=== PATIENT | female | born 1950 | race African-American/Black ===

== ENCOUNTER 2023-04-15 07:30 | Day surgery (SDC) | payer OTHER ==
[2023-04-13 10:30] LABS: Absolute Lymphocytes (CBC) 2.1 K/uL (0.7-4.9); MPV 8.8 fL (7.6-11.3); Platelets 302 thou/uL (152-406); RBC Red Blood Cell Count 4.31 M/uL (3.86-4.86)
[2023-04-13 10:36] LABS: Protime INR 0.97
--- NOTE | 2023-04-13 10:39 | RAD REPORT ---
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 Lungs: No evidence of edema or pneumonia. Pleural: No significant pleural effusions or pneumothorax. Cardiac: The heart size is within normal limits. Mediastinum: Within normal limits. Bones: No acute fractures. Other: None IMPRESSION: No acute cardiopulmonary disease.
--- NOTE | 2023-04-14 18:07 | EKG ---
Test Date: 2023-04-13 Test Time: 10:17:19 Controller Repairer And Tester: LEON MEASUREMENT RESULTS: Intervals: Rate: 63 AK: 240 QRSD: 86 QT: 380 QTc: 388 [place]: P: -9 AK: 240 QRS: 57 T: -90 INTERPRETIVE STATEMENTS: Electronic atrial pacemaker Cannot rule out Anterior infarct, age undetermined ST & T wave abnormality, consider inferolateral ischemia Abnormal ECG Compared to ECG 05/11/2007 18:32:35 Myocardial infarct finding now present ST (T wave) deviation now present Possible ischemia now present Sinus rhythm no longer present Electronically Signed On 04-14-23 18:03:57 CDT by Augustus Love
[2023-04-15] MEDS ORDERED: NA CHLORIDE 0.9% 500 ML ONE (08:59)
[2023-04-15] MEDS ORDERED: LIDOCAINE 1% 20 ML MDV ONE (10:41)
[2023-04-15] MEDS ORDERED: MIDAZOLAM HCL 2 MG/2 ML INJ ONE (10:42)
[2023-04-15] MEDS ORDERED: FENTANYL CITR 100 MCG/2 ML ONE (10:42)
[2023-04-15] MEDS ORDERED: ATROPINE SULF 1 MG/10 ML SYR IV ONE (10:42)
[2023-04-15] MEDS ORDERED: HEPA 1000U/500MLS 2,000 UNIT/1,000 ML BAG IV ONE (10:42)
[2023-04-15 12:20] VITALS: O2SAT 99
[2023-04-15] MEDS ORDERED: HYDRALAZINE HCL 20 MG/ML VIAL ONE (12:43)
--- NOTE | 2023-04-15 13:05 | OP ---
Date of Procedure: 04/15/2023 Surgeon: MARCELA KLINE Procedure Performed: Selective bilateral carotid angiogram. Indication: Carotid stenosis by Doppler that appeared to be significant. Access: Right femoral artery, 6-Sammarinese, closed with 6-Sammarinese Angio-Seal. Complications: None. Bleeding: Less than 20 mL. Anesthesia: Total sedation time was 35 minutes. Description Of Procedure: After risks, benefits, and alternatives were explained, the patient agreed to the procedure and signed informed consent. The patient was brought into the cardiac catheterizat ion laboratory, prepped and draped in the usual sterile fashion. Then, I accessed right femoral katie ry using micropuncture kit, ultrasound guidance, fluoroscopy. I placed a 6-Sammarinese [place] sheath an d took 4-Sammarinese 3DRC catheter into the aortic arch, engaged the right common carotid, took standard v iews and then left common carotid, took standard views and removed the catheter and the sheath. 6-Fr ench Angio-Seal was used for closure. Good hemostasis. Findings: 1.Right common carotid is normal proximally and mid. The distal segment has 56% stenosis and the ri ght internal carotid artery has proximal 60% stenosis. 2.Left common carotid is normal and left internal carotid has proximal 70% stenosis. The left exter nal carotid is normal. Conclusion: 1.Severe left internal carotid artery stenosis. 2.Moderate to severe right internal carotid artery stenosis. Recommendation: Left endarterectomy and careful monitoring of the right side. SR/MODL Voice ID: [id number] Report ID: [id number]
[2023-04-15 13:58] VITALS: BP 139/50
== END 2023-04-15 13:15 | disposition home or self-care (01) ==
LOC: CCL 07:30
PROVIDERS: ATTEND Internal Medicine
DX: I65.23 Occlusion and stenosis of bilateral carotid arteries (principal); Z95.0 Presence of cardiac pacemaker
CPT/HCPCS: 93005; 85025; 80048; 36415; 83721; 85610; 82947; 85730; 71046; 36222; 76937; C1893; C1760; G0269; J0360; J2001; J2250; J3010; J7040; J0461

== ENCOUNTER 2024-04-04 11:16 | Day surgery (SDC) | payer OTHER ==
--- NOTE | 2024-04-03 13:23 | RAD REPORT ---
Procedure: Chest Pa And Lat (2 Views) HISTORY: Hypertension. Preop for cardiac catheterization COMPARISON: 2022 FINDINGS: The lungs appear clear of acute infiltrate. No significant pleural effusion noted. The heart is mildly to moderately enlarged. Pacemaker leads in place IMPRESSION: No acute abnormality is displayed.
[2024-04-03 13:47] LABS: Absolute Eosinophils 0.1 K/uL (0-0.5); Absolute Lymphocytes (CBC) 1.9 K/uL (0.7-4.9); Absolute Monocytes 0.5 K/uL (0.1-1.3); Absolute Neutrophil 5.6 K/uL (1.8-8.0); Basophils % 0.6 % (0-1.3); Eosinophils % 0.8 % (0-4.4); Hemoglobin 11.3 g/dL (12.0-15.0); MCH 28.3 pg (27.0-35.0); MCHC 32.3 g/dL (32.0-36.0); MCV 87.8 fL (80-100); MPV 9.9 fL (7.6-11.3); Monocytes % 5.8 % (3.3-12.3); Neutrophils % 68.8 % (41.7-73.7); Platelets 264 thou/uL (152-406); RBC Red Blood Cell Count 3.98 M/uL (3.86-4.86); Red Cell Distribution Width 15.5 % (12.1-15.2)
[2024-04-03 15:05] LABS: Anion Gap 11.9 mEq/L (5.0-15.0); Potassium 3.9 mEq/L (3.5-5.1)
[2024-04-04] MEDS ORDERED: NA CHLORIDE 0.9% 500 ML ONE (11:29)
[2024-04-04 12:14] LABS: PT Prothrombin Time 11.6 SECONDS (9.4-12.5); PTT, Activated Partial Thromb 30.6 SECONDS (24.3-36.9); Protime INR 1.04
[2024-04-04 12:15] VITALS: TEMP 97.5
[2024-04-04] MEDS ORDERED: ATROPINE SULF 1 MG/10 ML SYR IV ONE (12:37)
[2024-04-04] MEDS ORDERED: LIDOCAINE 1% 20 ML MDV ONE (12:37)
[2024-04-04] MEDS ORDERED: VERAPAMIL HCL 10 MG/4 ML VIAL IV ONE (12:37)
[2024-04-04] MEDS ORDERED: HEPARIN 10,000 UNIT/10 ML VIAL IV ONE (12:37)
[2024-04-04] MEDS ORDERED: TICAGRELOR 90 MG TABLET PO ONE (12:38)
[2024-04-04] MEDS ORDERED: CLOPIDOGREL 75 MG TABLET ONE (12:38)
[2024-04-04] MEDS ORDERED: HEPARIN 5000 UNIT/ML 1 ML VIAL ONE (12:38)
[2024-04-04] MEDS ORDERED: MIDAZOLAM HCL 2 MG/2 ML INJ ONE (12:41)
[2024-04-04] MEDS ORDERED: FENTANYL CITR 100 MCG/2 ML ONE (12:41)
[2024-04-04] MEDS ORDERED: HEPA 1000U/500MLS 2,000 UNIT/1,000 ML BAG IV ONE (12:47)
--- NOTE | 2024-04-04 12:52 | EKG ---
Test Date: 2024-04-03 Test Time: 12:47:16 Advertising Director: ANASTASIA MEASUREMENT RESULTS: Intervals: Rate: 60 [place]: 248 QRSD: 86 QT: 380 QTc: 380 [place]: P: [place]: 248 QRS: -8 T: 211 INTERPRETIVE STATEMENTS: Electronic atrial pacemaker ST & T wave abnormality, consider inferior ischemia Abnormal ECG Compared to ECG 04/13/2023 10:17:19 Myocardial infarct finding no longer present ST (T wave) deviation still present Possible ischemia still present Electronically Signed On 04-04-24 12:50:06 CDT by Tommy Mena
[2024-04-04 15:40] VITALS: BP 149/74; O2SAT 97
--- NOTE | 2024-04-04 19:43 | OP ---
Date of Procedure: 04/04/2024 Surgeon: MARCELA KLINE Procedures Performed: 1.Coronary angiogram. 2.Left heart catheterization. Indication: Chest pain with abnormal stress test. Access: Right radial artery 6-Filipino closed with TR band. Complications: None. Bleeding: Less than 50 mL. Total Sedation Time: 45 minutes. Used fentanyl and Versed. Description Of Procedure: After risks, benefits, and alternatives were explained, patient agreed to procedure and signed informed consent. The patient was brought into cardiac catheterization laborato , prepped and draped in usual sterile fashion. Then, I accessed right radial artery using MIOX c micropuncture kit, placed 6-Filipino Sl[place] sheath, and took 5-Filipino [place] 4.0 catheter into the ao rtic root, engaged the left main and right coronary artery, took standard views and catheter was push ed over the wire into the LV, measured the LVEDP. Pullback did not record any gradient. I then rodrigue gabo the catheter and the sheath, placed TR band with good hemostasis. Findings: 1.Left main is normal. 2.LAD; proximal 30%, mid 40%, distal is normal. Diagonal branch 1 is small vessel, has proximal 60% . 3.Left circumflex; it is large and dominant. It is normal. OM branch has 40% proximally. 4.RCA; small, nondominant. No significant disease. 5.Normal LVEDP at 6 mmHg. Conclusion: 1.Moderate coronary artery disease. 2.Normal LVEDP. Recommendation: Medical management. /YUAN Voice ID: [id number] Report ID: [id number]
== END 2024-04-04 15:32 | disposition home or self-care (01) ==
LOC: CCL 11:16
PROVIDERS: ATTEND Internal Medicine
DX: I25.110 Atherosclerotic heart disease of native coronary artery with unstable angina pectoris (principal); I65.23 Occlusion and stenosis of bilateral carotid arteries; I11.0 Hypertensive heart disease with heart failure; I50.22 Chronic systolic (congestive) heart failure; E78.5 Hyperlipidemia, unspecified; E11.9 Type 2 diabetes mellitus without complications; Z95.810 Presence of automatic (implantable) cardiac defibrillator; Z79.02 Long term (current) use of antithrombotics/antiplatelets; Z79.82 Long term (current) use of aspirin; Z79.84 Long term (current) use of oral hypoglycemic drugs; Z79.899 Other long term (current) drug therapy; Z82.49 Family history of ischemic heart disease and other diseases of the circulatory system
CPT/HCPCS: 93005; 85025; 80048; 36415 ×2; 85610; 82947; 85730; 71046; 93458; 76937; C1893; Q9966; J1644; J2001; J2250; J3010; J7040; 99152; 99153; J0461